=== PATIENT | female | born 1960 | race Caucasian/White ===

== ENCOUNTER 2023-12-09 18:40 | Emergency (ER) | payer OTHER, MEDICARE, SELFPAY ==
[2023-12-09] VITALS (10 sets, daily range): BP systolic 138–189; BP diastolic 72–90; PULSE 61–75; RESP 16; TEMP 36.8; O2SAT 97–99
--- NOTE | 2023-12-09 18:48 | ED_ITS ---
HPI - General Adult General Chief complaint: Fall Stated complaint: fell Time Seen by Provider: 12/09/23 18:48 History of Present Illness HPI narrative: 63-year-old female with history of B-cell lymphoma, ongoing chemotherapy through [facility] hematology oncology, via access right Port-A-Cath, had ground level fall last night at both show, apparently witnessed by some kind of medical provider that was worried the nature of her fall they she sustained significant injury, was advised to follow up, she did not decide to do so until now. No blood thinner medications taken. No loss of consciousness. Had headache initially. Has some posterior headache and neck pain residual. More problematic as a right elbow, with pain on movement. No other injuries. Denies chest pain, abdominal pain. No pain to the right clavicle, shoulder, upper arm, distal forearm, hand, wrist, fingers. No pain or injuries to the left upper extremity, nor to the lower extremities. Related Data Home Medications Medication Instructions Recorded Confirmed diphenoxylate-atropine 2.5 1 tab PO DAILY 08/18/23 12/09/23 mg-0.025 mg tablet dupilumab 300 mg/2 mL subcutaneous 300 mg SUBCUT Q2W 08/18/23 12/09/23 pen injector (Dupixent) immune glob,gamm(IgG) 5 %-malt-IgA IV 08/18/23 12/09/23 over 50 mcg/mL intravenous solution (Octagam) liothyronine 5 mcg tablet 5 mcg PO DAILY 08/18/23 12/09/23 lorazepam 1 mg tablet 1 mg PO DAILY PRN 08/18/23 12/09/23 pirtobrutinib 100 mg tablet 200 mg PO DAILY 08/18/23 12/09/23 (Jaypirca) Previous Rx's Medication Instructions Recorded citalopram 40 mg tablet 40 mg PO DAILY #90 tabs 08/18/23 Disabled Parking #1 ea 08/24/23 Disabled Parking 1 unit .Route ONCE #1 unit 08/24/23 Allergies Allergy/AdvReac Type Severity Reaction Status Date / Time No Known Drug Allergies Allergy Verified 12/09/23 18:09 Patient History Medical History Hypothyroid Dermatitis CLL (chronic lymphocytic leukemia) KARTHIKEYAN (generalized anxiety disorder) Surgical History History of tonsillectomy History of appendectomy History of cholecystectomy Social History marital status: number of children: 2 Smoking Status: Never smoker second hand exposure: Yes alcohol intake: current (Once a month if that) substance use type: does not use Smoking Status: Never smoker Exam Narrative Exam Narrative: GENERAL: Well-developed patient, in mild distress. HEAD: Atraumatic. Normocephalic. Wearing glasses, no obvious nasal bridge or periorbital injury patterns, the same glasses worn during the fall which do not appear to be damaged EYES: Pupils equal round and reactive. Extraocular motions intact. No scleral icterus. No injection or drainage. ENT: Nose without bleeding, purulent drainage. Throat without erythema, tonsillar hypertrophy or exudate. Airway patent. NECK: Trachea midline. Non tender CARDIOVASCULAR: Regular rate and rhythm without murmurs, gallops, or rubs. RESPIRATORY: Clear to auscultation. Breath sounds equal bilaterally. No wheezes, rales, or rhonchi. Right upper anterior chest Port-A-Cath, site does not appear injured from recent fall GASTROINTESTINAL: Abdomen soft, non-tender, nondistended. EXTREMITIES: No edema. Tenderness to right elbow area, without fluctuance or skin changes, can flex and extend but apparently this is quite uncomfortable. No tenderness to right clavicle, anterior shoulder, upper arm, forearm, wrist, hand, fingers. Left upper extremity and bilateral lower extremities atraumatic appearing BACK: Nontender without deformity or crepitance. No flank tenderness. NEURO: AOx3. SKIN: No rash or erythema of visible areas Initial Vital Signs Initial Vital Signs: Vital Signs Pulse Rate 66 12/09/23 18:49 Pulse Oximetry 99 12/09/23 18:49 Course Orders Ordered: ED Orders 12/09/23 18:57 CT cervical spine wo con Stat CT head/brain wo con Stat 12/09/23 18:58 XR elbow RT min 3V Stat Vital Signs Vital signs: Vital Signs - 8 hr 12/09/23 18:54 Temperature 98.3 F Pulse Rate 75 Respiratory Rate 16 Blood Pressure 189/90 H Pulse Oximetry 97 Oxygen Delivery Method Room Air Medical Decision Making Differential Diagnosis Differential Diagnosis: Scalp contusion, traumatic brain injury, facial contusion, cervical strain Imaging Data Extremity x-ray #1: Radiologist's Impression: [address] [address] XRay Report Signed Patient: Rama Acosta MR#: [id number] : 1960 Acct:[id number] Age/Sex: 63 / F Date of Service: 12/09/23 Loc: ED Accession Number: [id number] Procedure: XR elbow RT min 3V Ordering Provider: Marco Tran MD PROCEDURE: XR ELBOW RT MIN 3V INDICATIONS: GLF, R elbow pain TECHNIQUE: 3 views of the elbow were acquired. COMPARISON: None. FINDINGS: Bones: No fractures or dislocations. No suspicious bony lesions. Soft tissues: No elbow joint effusion. No suspicious soft tissue calcifications. IMPRESSION: No acute bony abnormality or significant joint effusion. If symptoms persist with conservative management, consider cross-sectional imaging such as CT or MRI. Approved by: Monica Lozoya M.D.,Ph.D. on 12/09/2023 at 20:38 CT scan - head: Radiologist's Impression: [address] [address] [address] Scan Report Signed Patient: Rama Acosta MR#: [id number] : 1960 Acct:[id number] Age/Sex: 63 / F Date of Service: 12/09/23 Loc: ED Accession Number: [id number] Procedure: CT head/brain wo con Ordering Provider: Marco Tran MD PROCEDURE: CT HEAD/BRAIN WO CON INDICATIONS: head injury TECHNIQUE: Noncontrast 4.5 mm thick angled axial sections acquired from the foramen magnum to the vertex, with coronal and sagittal reformats. For radiation dose reduction, the following was used: automated exposure control, adjustment of mA and/or kV according to patient size. COMPARISON: None. FINDINGS: Image quality: Diagnostic. CSF spaces: Basal cisterns are patent. No extra-axial fluid collections. Ventricles are normal in size and shape. Brain: No midline shift. No intracranial masses or hemorrhage. [place]-white matter interface is normal. Skull and face: Calvarium and visualized facial bones are intact, without suspicious lesions. Sinuses: Visualized sinuses and mastoids are clear. IMPRESSION: No acute intracranial pathology. Approved by: Monica Lozoya M.D.,Ph.D. on 12/09/2023 at 20:40 CT - cervical spine: Radiologist's Impression: [address] [address] [address] Scan Report Signed Patient: Rama Acosta MR#: [id number] : 1960 Acct:[id number] Age/Sex: 63 / F Date of Service: 12/09/23 Loc: ED Accession Number: [id number] Procedure: CT cervical spine wo con Ordering Provider: Marco Tran MD PROCEDURE: CT CERVICAL SPINE WO CON INDICATIONS: neck pain after GLF TECHNIQUE: Noncontrast 3 mm thick sections acquired from the skull base to the T4 level. Sagittal and coronal reformats were then constructed. For radiation dose reduction, the following was used: automated exposure control, adjustment of mA and/or kV according to patient size. COMPARISON: None. FINDINGS: Image quality: Diagnostic. Bones: No fractures or dislocations. Visualized superior ribs are intact. Soft tissues: Prevertebral soft tissues are normal in thickness. No paravertebral hematomas. No apical pneumothoraces. IMPRESSION: No displaced fracture or traumatic subluxation. Approved by: Monica Lozoya M.D.,Ph.D. on 12/09/2023 at 20:43 MDM Narrative Medical decision making narrative: Ground level fall last night, apparently witnessed by medical provider who is quite concerned about the nature of her fall and was worried about significant injury to face/head. She was wearing glasses, had no breakage of the glasses, no nasal bleeding, had some posterior headache, also posterior neck pain. Complains more of right elbow pain. She does not take any blood thinner medicat ions. CT head, CT cervical spine, right elbow x-rays ordered. Additional Information: CT head study negative, CT cervical spine study negative, x-ray right elbow series also negative. Right sling applied. Take [id number] Motrin as needed. Follow up recheck symptoms with your regular provider in the next 2-3 days if not improved. Return precautions discussed. Discharge Plan Departure Patient Disposition: Home Clinical Impression: Contusion of elbow, Neck strain Activity Restrictions/Additional Instructions: Reported, we will fall yesterday with right elbow pain persisting. X-ray negative for fracture, placed in sling for comfort and support. Also some posterior neck discomfort, apparently the fall was so worrisome to a medical provider on scene that they recommended close follow-up and imaging. CT head study negative. CT cervical spine study negative. Take Tylenol and or Motrin as needed for discomfort. Follow up with your regular provider in next 2-3 days. Return to this/nearest emergency department for any change worsening symptoms or any concerns prior Prescriptions: No Action Dupixent Pen 300 mg/2 mL pen injector 300 mg SUBCUT Q2W liothyronine 5 mcg tablet 5 mcg PO DAILY Patient Comments: 7 tabs per day Jaypirca 100 mg tablet 200 mg PO DAILY diphenoxylate-atropine 2.5-0.025 mg tablet 1 tab PO DAILY lorazepam 1 mg tablet 1 mg PO DAILY PRN Octagam 5 % solution IV citalopram 40 mg tablet 40 mg PO DAILY Qty: 90 2RF (DME) Disabled Parking See Rx Instructions .ROUTE .[facility] Qty: 1 0RF Rx Instructions: I find this patient to be medically disabled and qualified for DISABLED PARKING as indicated, and signed, on the ACCOMPANYING DISABLED PARKING APPLICATION for Individuals. Disabled Parking 1 unit .Route ONCE Qty: 1 0RF Rx Instructions: I find this patient to medically disabled and qualified for disabled parking as indicated and signed on the accompanying disabled parking applications for individuals. Referrals: Brenda Dias MD [Primary Care Provider] - Stand Alone Forms: Patient Portal/API
--- NOTE | 2023-12-09 18:57 | DI.CT.S_ITS ---
PROCEDURE: CT HEAD/BRAIN WO CON INDICATIONS: head injury TECHNIQUE: Noncontrast 4.5 mm thick angled axial sections acquired from the foramen magnum to the vertex, with coronal and sagittal reformats. For radiation dose reduction, the following was used: automated exposure control, adjustment of mA and/or kV according to patient size. COMPARISON: None. FINDINGS: Image quality: Diagnostic. CSF spaces: Basal cisterns are patent. No extra-axial fluid collections. Ventricles are normal in size and shape. Brain: No midline shift. No intracranial masses or hemorrhage. [place]-white matter interface is normal. Skull and face: Calvarium and visualized facial bones are intact, without suspicious lesions. Sinuses: Visualized sinuses and mastoids are clear. IMPRESSION: No acute intracranial pathology. Approved by: Monica Lozoya M.D.,Ph.D. on 12/09/2023 at 20:40
--- NOTE | 2023-12-09 18:57 | DI.CT.S_ITS ---
PROCEDURE: CT CERVICAL SPINE WO CON INDICATIONS: neck pain after GLF TECHNIQUE: Noncontrast 3 mm thick sections acquired from the skull base to the T4 level. Sagittal and coronal reformats were then constructed. For radiation dose reduction, the following was used: automated exposure control, adjustment of mA and/or kV according to patient size. COMPARISON: None. FINDINGS: Image quality: Diagnostic. Bones: No fractures or dislocations. Visualized superior ribs are intact. Soft tissues: Prevertebral soft tissues are normal in thickness. No paravertebral hematomas. No apical pneumothoraces. IMPRESSION: No displaced fracture or traumatic subluxation. Approved by: Monica Lozoya M.D.,Ph.D. on 12/09/2023 at 20:43
--- NOTE | 2023-12-09 18:58 | DI.RAD.S_ITS ---
PROCEDURE: XR ELBOW RT MIN 3V INDICATIONS: GLF, R elbow pain TECHNIQUE: 3 views of the elbow were acquired. COMPARISON: None. FINDINGS: Bones: No fractures or dislocations. No suspicious bony lesions. Soft tissues: No elbow joint effusion. No suspicious soft tissue calcifications. IMPRESSION: No acute bony abnormality or significant joint effusion. If symptoms persist with conservative management, consider cross-sectional imaging such as CT or MRI. Approved by: Monica Lozoya M.D.,Ph.D. on 12/09/2023 at 20:38
== END 2023-12-09 21:33 | disposition home or self-care (01) ==
PROVIDERS: Emergency Provider Emergency Medicine; PCP Family Medicine
DX: S50.01XA Contusion of right elbow, initial encounter (principal); S16.1XXA Strain of muscle, fascia and tendon at neck level, initial encounter; S09.90XA Unspecified injury of head, initial encounter; W18.30XA Fall on same level, unspecified, initial encounter; C91.10 Chronic lymphocytic leukemia of B-cell type not having achieved remission
CPT/HCPCS: 70450; 72125; 73080; 99283; 99284

== ENCOUNTER → 2024-04-17 16:40 | Outpatient (CLI) | payer OTHER, MEDICARE, SELFPAY ==
--- NOTE | 2024-04-17 16:44 | DI.RAD.S_ITS ---
PROCEDURE: XR CHEST 2V INDICATIONS: Cough TECHNIQUE: 2 views of the chest were acquired. COMPARISON: None. FINDINGS: Surgical changes and devices: Right chest wall Port-A-Cath tip is in SVC. Lungs and pleura: Lungs are clear. No pleural effusions or pneumothorax. Mediastinum: Mediastinal contours are normal. Heart size is normal. Bones and chest wall: No suspicious bony abnormalities. Soft tissues appear unremarkable. IMPRESSION: No acute cardiopulmonary pathology. Dictated by: Dakota Briggs M.D. on 04/19/2024 at 11:05 Approved by: Dakota Briggs M.D. on 04/19/2024 at 11:07
== END ==
PROVIDERS: PCP Family Medicine; Referring Provider Family Medicine; Visit Provider Family Medicine
DX: J18.9 Pneumonia, unspecified organism (principal); R05.9 Cough, unspecified
CPT/HCPCS: 71046

== ENCOUNTER 2024-06-29 09:11 | Outpatient (CLI) | payer OTHER, MEDICARE, SELFPAY ==
[2024-06-29] VITALS (14 sets, daily range): BP systolic 104–146; BP diastolic 62–78; PULSE 20–70; RESP 16–22; TEMP 36.6; O2SAT 93–98
--- NOTE | 2024-06-29 09:15 | DI.CT.S_ITS ---
PROCEDURE: CT CHEST WO CON INDICATIONS: Right lower lobe posterior/medial basilar segment pulmonary nodules, the most characteristic of which was targeted for CT-guided biopsy attempt under moderate sedation. TECHNIQUE: Noncontrast 5 mm thick sections acquired from the pulmonary apices to the posterior costophrenic angles. 1 mm lung window, 5 mm thick coronal and sagittal and 7 mm axial MIP reformats were then acquired. For radiation dose reduction, the following was used: automated exposure control, adjustment of mA and/or kV according to patient size. COMPARISON: None. FINDINGS: Image quality: Procedural. A time-out was performed and the patient was provided moderate sedation in anticipation for the procedure. A topogram was obtained followed by selective noncontrast CT imaging through the lung bases with the patient in the right lateral decubitus position in an attempt to approach the right lower lobe pulmonary nodule of choice from a medial to lateral posterior approach. Grid lines were used to select a target window. Local anesthesia was given at the window entry site. An additional scan was performed. The preprocedural planned window was obscured by an overlying rib upon needle check in this position. Adjustments were made to depth of respiration or expiration in the right lateral decubitus position without providing an adequate window. The patient was slightly rolled more prone with additional attempts also adjusting respiration. Inconsistent respiratory hold led to significant variation and the nodules position in relation to the pre selected entry sites making it impossible to target the lesion successfully under still frame CT. Fluoroscopic CT is not available. Therefore, the CT-guided right lower lobe pulmonary nodule biopsy was aborted at this time related to targeting issues and concern for wide respiratory motion resulting in a large pleural tear during an attempted biopsy. IMPRESSION: Aborted right lower lobe pulmonary nodule biopsy attempt related to wide variation and respiratory motion under moderate sedation. For better targeting and patient safety the decision was made to reschedule this procedure with general anesthesia in order to adequately target the lesion under breath hold with reduced risk of pleural tearing and increased likelihood of obtaining an adequate sample. Dictated by: Berry Paige M.D. on 06/29/2024 at 13:57 Approved by: Berry Paige M.D. on 06/29/2024 at 14:05
[2024-06-29 09:44] LABS: Hemoglobin 14.1 g/dL (12.0-16.0); Mean Corpuscular HGB Conc 33.6 % (30-36); Mean Corpuscular Hemoglobin 31.6 PG (26-34); Mean Corpuscular Volume 94.2 fL (80-100); Platelet Count 305 X10^3/uL (150-400); Red Blood Cell Count 4.46 X10^6/uL (4.0-5.2); Red Cell Distribution Width 13.6 % (11.6-14.8); White Blood Cell Count 6.5 X10^3/uL (4.5-11.0)
[2024-06-29 10:06] LABS: Prothrombin Time 11.5 SECONDS (9.4-12.5)
[2024-06-29] MEDS: LIDOCAINE 1% 20 ML INJ (10:35)
[2024-06-29] MEDS: fentaNYL 100 MCG/2 ML INJ IV (13:00)
[2024-06-29] MEDS: MIDAZOLAM 2 MG/2 ML VIAL IV (13:00)
== END 2024-06-29 12:00 | disposition home or self-care (01) ==
PROVIDERS: PCP Family Medicine; Referring Provider Radiology Diagnostic Radiology; Visit Provider Radiology Diagnostic Radiology
DX: C91.10 Chronic lymphocytic leukemia of B-cell type not having achieved remission (principal); R91.8 Other nonspecific abnormal finding of lung field
CPT/HCPCS: 71250; 85027; 85610; J2250; J3010

== ENCOUNTER 2024-07-09 19:21 | Emergency (ER) | payer OTHER, SELFPAY ==
[2024-07-09 19:30] VITALS: BP 147/78; PULSE 95; RESP 18; TEMP 36.7; O2SAT 96; BMI 40.3
== END 2024-07-09 20:31 | disposition left against medical advice (07) ==
PROVIDERS: Emergency Provider Emergency Medicine; PCP Family Medicine
DX: K92.0 Hematemesis (principal)
CPT/HCPCS: 99281

== ENCOUNTER 2024-07-13 07:06 | Outpatient (CLI) | payer OTHER, SELFPAY ==
[2024-07-13] VITALS (23 sets, daily range): BP systolic 100–134; BP diastolic 50–83; PULSE 54–71; RESP 10–25; TEMP 36.4; O2SAT 69–99
--- NOTE | 2024-07-13 | PATH_ITS ---
[facility] Accession Number: [id number] No. of containers..01 Tissue . 01 Material submitted: . lung - RIGHT LUNG . 01 Clinical history: . RIGHT LOWER LOBE LUNG NODULE PARAESOPHAGEAL NODULE . 01 Diagnosis: RIGHT LUNG, CORE BIOPSY: Peripheral lung tissue with rare intra-alveolar histiocytes, non-specific. No neoplasia or malignancy identified. MRV 07/16/2024 1550 Local . 01 Electronically signed: . Sobeida Purvis MD, Pathologist NPI- [id number] . 01 Gross description: . RIGHT LUNG: Received in formalin are 3 fragment(s) of cruz, soft tissue measuring 0.1 x 0.1 x 0.1 cm to 0.3 x 0.1 x 0.1 cm submitted entirely in 1 cassette(s) /FELIBERTO 07/13/2024 2348 Local . 01 Pathologist provided ICD-10: R91.1 . 01 CPT . 714733 Specimen Comment: A courtesy copy of this report has been sent to [phone] Specimen Comment: Health Pathology Performed at: [address] [address], [place], [place] [id number] MD Berry Redding MD Phone: [phone]
--- NOTE | 2024-07-13 | DI.RAD.S_ITS ---
PROCEDURE: XR CHEST 1V INDICATIONS: POST LUNG BIOPSY TECHNIQUE: One view of the chest was acquired. COMPARISON: None. FINDINGS: Surgical changes and devices: Right-sided chest port catheter with tip at the cavoatrial junction is unchanged in position.. Lungs and pleura: Lungs are clear. No pleural effusions or pneumothorax. Mediastinum: Mediastinal contours appear normal. Heart size is normal. Bones and chest wall: No suspicious bony lesions. Overlying soft tissues appear unremarkable. IMPRESSION: No right-sided pneumothorax post lung biopsy. Dictated by: Reji Tanner M.D. on 07/13/2024 at 12:44 Approved by: Reji Tanner M.D. on 07/13/2024 at 12:44
--- NOTE | 2024-07-13 07:08 | DI.CT.S_ITS ---
CLINICAL HISTORY: 64-year-old woman with enlarging right lower lobe lung nodules. PROCEDURE: CT GUIDED RIGHT LOWER LOBE LUNG NODULE BIOPSY PHYSICIAN: Reji Tanner M.D. SEDATION: Conscious sedation was performed by the nursing staff under the supervision of the physician with continuous hemodynamic monitoring. Medications: Versed 2 mg; Fentanyl 100 mcg; sedation time 30 min DOSE: DLP: 3102 mGycm CONTRAST: none FINDINGS: After the risks, benefits and alternatives were explained, informed consent was obtained from the patient and/or family members. The patient was placed prone on the CT table. An appropriate skin entry site was prepped and draped in a sterile fashion. Local anesthesia administered with 1% lidocaine. Under CT guidance, a 19 gauge needle cannula was advanced in stepwise fashion into the medial right lower lobe lung nodule which was reported to demonstrate interval growth on a prior chest CT of 05/31/2024 and adjacent to the esophagus. CT was performed confirming needle position within the targeted lesion. Next, a coaxial 20 gauge core biopsy needle was advanced through the needle cannula and 4 core biopsies were obtained. Specimens were sent to pathology for evaluation. Additional specimens sent for culture. The needle was removed. Patient tolerated the procedure well. No immediate complications noted. IMPRESSION: CT guided biopsy of right lower lobe paraesophageal lung nodule as described. Dictated by: Reji Tanner M.D. on 07/13/2024 at 16:28 Approved by: Reji Tanner M.D. on 07/13/2024 at 16:32
[2024-07-13] MEDS: MIDAZOLAM 2 MG/2 ML VIAL 1 MG IV ×2 (08:56→09:06)
[2024-07-13] MEDS: LIDOCAINE 1% 20 ML INJ (09:00)
[2024-07-13] MEDS: fentaNYL 100 MCG/2 ML INJ 50 MCG IV ×2 (09:06→11:03)
== END 2024-07-13 12:00 | disposition home or self-care (01) ==
PROVIDERS: PCP Family Medicine; Referring Provider Internal Medicine Critical Care Medicine; Visit Provider Internal Medicine Critical Care Medicine
DX: R91.8 Other nonspecific abnormal finding of lung field (principal)
CPT/HCPCS: 32408; 71045; 87070; 87116; 87205; 87206; 99152; 99153; J2250; J3010

== ENCOUNTER → 2024-08-30 10:09 | Outpatient (CLI) | payer OTHER, MEDICARE, SELFPAY ==
--- NOTE | 2024-08-30 10:13 | DI.CT.S_ITS ---
PROCEDURE: CT CHEST WO CON INDICATIONS: chest pain TECHNIQUE: Noncontrast 5 mm thick sections acquired from the pulmonary apices to the posterior costophrenic angles. 1 mm lung window, 5 mm thick coronal and sagittal and 7 mm axial MIP reformats were then acquired. For radiation dose reduction, the following was used: automated exposure control, adjustment of mA and/or kV according to patient size. COMPARISON: [facility], CT, CT CHEST WO CON, 06/29/2024, 10:21., CT CHEST 05/30/2024 FINDINGS: Image quality: Diagnostic. Lower Neck: No enlarged lymph nodes. Thyroid: No thyroid nodules which require sonographic follow up, per consensus guidelines. Axillae: No enlarged lymph nodes. Chest Wall: There is a right chest wall catheter with tip terminating in the lower SVC. Bones: No aggressive osseous abnormality. Mild multilevel degenerative changes of the visualized spine. Lungs and Pleura: No pneumothorax or pleural effusions. There is redemonstration of multiple right lower lobe solid nodules as well as right upper lobe nodule, which are overall not significantly changed in size since prior CT 05/30/2024. There are post biopsy changes of the medial right lower lobe nodule status post CT-guided biopsy with trace adjacent subpleural fluid. Heart: Heart size is normal. No pericardial effusion. Thoracic Vessels: The aorta and pulmonary arteries demonstrate normal size. Mediastinum and Myrna: No enlarged lymph nodes. Esophagus: No wall thickening. Small hiatal hernia hiatal hernia. Upper Abdomen: Pneumobilia, as before. Visualized upper abdomen solid organs and bowel loops appear normal. IMPRESSION: Compared to prior CT 05/30/2024, status post CT-guided biopsy of medial right lower lobe lung nodule with post biopsy changes. Remainder of right upper and lower lobe nodules are not significantly changed. No new findings. Stable mild pneumobilia. Approved by: Monica Lozoya M.D.,Ph.D. on 08/30/2024 at 11:04
== END ==
LOC: CT 10:12
PROVIDERS: PCP Family Medicine; Referring Provider Internal Medicine Critical Care Medicine; Visit Provider Internal Medicine Critical Care Medicine
DX: R91.8 Other nonspecific abnormal finding of lung field (principal); R05.9 Cough, unspecified; K83.8 Other specified diseases of biliary tract
CPT/HCPCS: 71250

== ENCOUNTER 2024-10-02 11:21 | Emergency (ER) | payer MEDICARE, SELFPAY ==
[2024-10-02 11:24] VITALS: BP 128/70; PULSE 67; RESP 18; TEMP 35.8; O2SAT 99; BMI 40.3
--- NOTE | 2024-10-02 11:38 | ED.GENADULT ---
HPI - General Adult General Chief complaint: Shortness of Breath/Dyspnea Stated complaint: severe Lung pain, Time Seen by Provider: 10/02/24 11:33 History of Present Illness HPI narrative: 64-year-old woman with a history of CLL, depression, hypothyroidism, presents complaining of right posterior chest pain with significant pleuritic component. She has been seen by her plant engineering manager for this as recently as September 06. Patient underwent lung biopsy of a right paraesophageal nodule July [id number] which showed rare intra alveolar histiocytes with no neoplastic findings. She began experiencing right posterior chest pain at time. Had a follow up CT of the chest on August 30, 2024 which showed no significant changes to any of her findings. No recurrent hemoptysis. Related Data Home Medications Medication Instructions Recorded Confirmed diphenoxylate-atropine 2.5 1 tab PO DAILY 08/18/23 09/06/24 mg-0.025 mg tablet immune glob,gamm(IgG) 5 %-malt-IgA IV 08/18/23 09/06/24 over 50 mcg/mL intravenous solution (Octagam) lorazepam 1 mg tablet 1 mg PO DAILY PRN 08/18/23 09/06/24 pirtobrutinib 100 mg tablet 200 mg PO DAILY 08/18/23 09/06/24 (Jaypirca) albuterol sulfate 90 mcg/actuation 1 inh inhalation ONCE 03/19/24 09/06/24 aerosol inhaler Previous Rx's Medication Instructions Recorded Disabled Parking #1 ea 08/24/23 Disabled Parking 1 unit .Route ONCE #1 unit 08/24/23 bupropion HCl 150 mg 24 hr tablet, See Rx Instructions .Route 02/27/24 extended release .COMPLEX #30 tabs sodium,potassium,mag sulfates 17.5 See Rx Instructions PO .COMPLEX 03/07/24 gram-3.13 gram-1.6 gram oral soln #354 mL (Suprep Bowel Prep Kit) fluticasone propionate 50 1 spray intranasal DAILY #16 grams 04/17/24 mcg/actuation nasal spray,suspension (Flonase Allergy Relief) liothyronine 5 mcg tablet 35 mcg (7 x 5 mcg) PO DAILY #630 06/04/24 tabs citalopram 40 mg tablet 40 mg PO DAILY #90 tabs 08/20/24 dexamethasone 4 mg tablet 10 mg (2.5 x 4 mg) PO DAILY #5 tabs 10/02/24 gabapentin 100 mg capsule 100 mg PO BEDTIME #30 caps 10/02/24 oxycodone-acetaminophen 5 mg-325 1 tab PO Q6H PRN pain #10 tabs 10/02/24 mg tablet Allergies Allergy/AdvReac Type Severity Reaction Status Date / Time No Known Drug Allergies Allergy Verified 08/30/24 11:23 Patient History Medical History Hypothyroid Dermatitis CLL (chronic lymphocytic leukemia) KARTHIKEYAN (generalized anxiety disorder) Surgical History History of tonsillectomy History of appendectomy History of cholecystectomy Social History marital status: number of children: 2 Smoking Status: Never smoker second hand exposure: Yes alcohol intake: current substance use type: does not use Smoking Status: Never smoker alcohol intake frequency: 0-2 drinks per day Exam Initial Vital Signs Initial Vital Signs: Vital Signs Temperature 96.4 F L 10/02/24 11:24 Pulse Rate 67 10/02/24 11:24 Respiratory Rate 18 10/02/24 11:24 Blood Pressure 128/70 10/02/24 11:24 Pulse Oximetry 99 10/02/24 11:24 Oxygen Delivery Method Room Air 10/02/24 11:24 General: Appears to be in pain, able to speak in full sentences, no respiratory distress HEENT: Moist mucous membranes, normal sclera with reactive pupils, Respiratory: Lungs are clear to auscultation, no wheezing no rales no rhonchi. Full and symmetrical air movement Chest: Tender anterior mid clavicular line for ribs 2 3 and 4 to direct palpation with no overlying redness or subcutaneous air. Significant tenderness posterior axillary line ribs 10 11 and 12 on the right side, again with no over lying skin abnormalities Cardiac: Regular rate and rhythm no murmurs no bruits Abdomen: Soft, nontender, good bowel tones, no flank pain Skin: Warm and dry, no rashes Neurologic: Grossly neurologically intact with no obvious asymmetries or abnormalities Extremities: No trauma, well perfused Psych: Cooperative, appropriate insight and affect Course Orders Ordered: ED Orders 10/02/24 11:59 CT chest w con Stat 10/02/24 12:20 Complete Blood Count AUTO DIFF Stat Comprehensive Metabolic Panel Stat Hydromorphone HCl (Hydromorphone 0.5 Mg Inj) 0.5 mg IV Q15MIN PRN PRN Reason: Pain, Last Admin: 10/02/24 13:19 Dose: 0.5 mg Documented By: Discontinued Medications Dexamethasone (Dexamethasone 10 Mg/Ml Vial) 10 mg IV NOW ONE Stop: 10/02/24 13:03 Last Admin: 10/02/24 13:18 Dose: 10 mg Documented By: Ondansetron HCl (Ondansetron 4 Mg/2 Ml Inj) 4 mg IV NOW ONE Stop: 10/02/24 12:36 Last Admin: 10/02/24 12:38 Dose: 4 mg Documented By: Vital Signs Vital signs: Vital Signs - 8 hr 10/02/24 11:24 10/02/24 13:29 Temperature 96.4 F L Pulse Rate 67 65 Respiratory Rate 18 16 Blood Pressure 128/70 131/84 Pulse Oximetry 99 98 Oxygen Delivery Method Room Air Room Air Medical Decision Making Lab Data 10/02/24 12:20 10/02/24 12:20 Labs: Lab Results 10/02/24 Range/Units 12:20 WBC 11.0 (4.5-11.0) X10^3/uL RBC 4.30 (4.0-5.2) X10^6/uL Hgb 13.6 (12.0-16.0) g/dL Hct 40.5 (36-46) % MCV 94.2 (80-100) fL MCH 31.6 (26-34) PG MCHC 33.5 (30-36) % RDW 13.3 (11.6-14.8) % Plt Count 295 (150-400) X10^3/uL Neut % (Auto) 74.9 (50-75) % Lymph % (Auto) 13.9 L (25-40) % [place] % (Auto) 7.7 (3-14) % Eos % (Auto) 2.9 (2-4) % Baso % (Auto) 0.6 (0-2) % Neut # (Auto) 8200 H (6999-0021) /uL Lymph # (Auto) 1500 (2618-2312) /uL [place] # (Auto) 800 (0-900) /uL Eos # (Auto) 300 (0-450) /uL Baso # (Auto) 100 (0-100) /uL Sodium 140 (137-145) mmol/L Potassium 3.9 (3.4-5.1) mmol/L Chloride 104 (98-107) mmol/L Carbon Dioxide 27 (22-32) mmol/L BUN 13 (7-17) mg/dL Creatinine 0.90 (0.52-1.04) mg/dL Estimated GFR > 60 (>60) mL/min BUN/Creatinine Ratio 14.4 (6-22) Glucose 100 (80-110) mg/dL Calcium 9.3 (8.4-10.2) mg/dL Total Bilirubin 0.5 (0.2-1.3) mg/dL AST 25 (14-36) IU/L ALT 18 (<35) IU/L Alkaline Phosphatase 83 (38-126) U/L Total Protein 7.5 (6.3-8.2) g/dL Albumin 4.1 (3.5-5.0) g/dL Globulin 3.4 (1.7-4.1) g/dL Albumin/Globulin Ratio 1.2 (1.0-2.8) MDM Narrative Medical decision making narrative: CC: Severe right-sided chest pain Complicating co-morbidities: Pain has been present since June after a lung nodule biopsy. Has a history of C LL, this pain has been evaluated as an outpatient by her pulmonary provider as well as her primary care provider Data collected from: patient Medical records reviewed: Pulmonary notes from September 06 with notes of rib pain are reviewed Family practice notes with similar complaints also reviewed Differential considered: Pleurisy, metastatic erosion into bones, primary bone metastases Exam documented above, pertinent findings include: Patient is exquisitely tender completely reproducible anterior upper ribs on the right, posterior pain for lower ribs on the right with underlying pulmonary exam benign Lab Test results independently reviewed as above. Pertinent findings: CBC is reassuring Metabolic panel shows no acute findings Imaging studies independently reviewed: Chest CT scan done on August 30 is reviewed Given the severity of her point tenderness and concern for metastatic disease or new eroding lesions, decision was made, in discussion with the patient, to repeat CT scan of the chest Treatments: IV dexamethasone, Zofran discussion: 64-year-old woman with a history of CLL, chronic pulmonary nodules, recent biopsy of a pulmonary nodule with pain musculoskeletal and pleuritic on the right side extensive evaluation with multiple CT scans at this point. No obvious explanation for the pain has been identified. Specifically no acute bony abnormalities, no metastatic explanation for pain, the pain goes along the entire right thorax so simple radicular pain would not explain this. Labs are reassuring, CT scan is again reassuring. We talked about using 3 days of dexamethasone to reduce inflammation, suggested a brief trial of low-dose gabapentin to see if we could add neuro modulator for this pain control that is causing her so much suffering. We talked about adding narcotics. We negotiated a written prescription for a small dose of narcotic that she can choose to fill in the future if the pain continues. Did ask her to follow up with her primary care physician Discharge Plan Departure Patient Disposition: Home Clinical Impression: Acute chest wall pain Instructions: DI for Pleurisy Activity Restrictions/Additional Instructions: Thank you for coming in today, I am sorry that you are continuing to suffer with the severe right-sided rib pain I have not been able to find an obvious acute medical abnormality that I can change or fix to get rid of your pain. Specifically, there were no rib fractures, there is no cancer in your ribs, there was no cancer from your lungs that is spreading to your ribs, no obvious infection. Because this affects your entire right side of the torso this is not from a single nerve root from your neck that might be causing the problem I am going to suggest 3 days of dexamethasone, this is an anti-inflammatory to reduce inflammation. First dose was given in the emergency department you need 2-1/2 pills tomorrow and 2-1/2 pills the following day I am also going to suggest a neuromodulator type pain medication, gabapentin. This helps change how your brain interprets pain signals so that the pain signals are not so all encompassing. Going to suggest starting at a small dose, 100 mg at night. I have given you enough for a month, if you do not notice any benefit after a week do not continue. Do discuss this with your regular physician We discussed narcotics. While I respect very much your desire to avoid them, times there is a place for narcotic and acute pain control. I have given you a prescription for oxycodone that is written. If you do want to fill this prescription to help with pain control note that it is a narcotic, there is a potential for addiction and it will cause constipation. It will also help with your pain. Using 400 mg of ibuprofen (2 [id number] pills) and 1 Tylenol every 6 hours can be very helpful in controlling pain. If you find that you are getting worse or develop any new symptoms, please feel free to return to the emergency department for further evaluation. Prescriptions: New dexamethasone 4 mg tablet 10 mg PO DAILY Qty: 5 0RF gabapentin 100 mg capsule 100 mg PO BEDTIME Qty: 30 0RF oxycodone-acetaminophen 5-325 mg tablet 1 tab PO Q6H PRN (Reason: pain) Qty: 10 0RF No Action Jaypirca 100 mg tablet 200 mg PO DAILY diphenoxylate-atropine 2.5-0.025 mg tablet 1 tab PO DAILY lorazepam 1 mg tablet 1 mg PO DAILY PRN Octagam 5 % solution IV albuterol sulfate 90 mcg/actuation HFA aerosol inhaler 1 inh inhalation ONCE fluticasone propionate [Flonase Allergy Relief] 50 mcg/actuation spray,suspension 1 spray intranasal DAILY Qty: 16 0RF Rx Instructions: administer into each nostril (DME) Disabled Parking See Rx Instructions .ROUTE .MEDSUPPLY Qty: 1 0RF Rx Instructions: I find this patient to be medically disabled and qualified for DISABLED PARKING as indicated, and signed, on the ACCOMPANYING DISABLED PARKING APPLICATION for Individuals. Disabled Parking 1 unit .Route ONCE Qty: 1 0RF Rx Instructions: I find this patient to medically disabled and qualified for disabled parking as indicated and signed on the accompanying disabled parking applications for individuals. bupropion HCl 150 mg tablet extended release 24 hr See Rx Instructions .ROUTE .COMPLEX Qty: 30 5RF Dose Instruction: TAKE ONE TABLET BY MOUTH EVERY MORNING Rx Instructions: TAKE ONE TABLET BY MOUTH EVERY MORNING sodium,potassium,mag sulfates [Suprep Bowel Prep Kit] 17.5-3.13-1.6 gram recon soln See Rx Instructions PO .COMPLEX Qty: 354 0RF Rx Instructions: take as directed by Physician liothyronine 5 mcg tablet 35 mcg PO DAILY Qty: 630 3RF citalopram 40 mg tablet 40 mg PO DAILY Qty: 90 3RF Referrals: Brenda Dias MD [Primary Care Provider] - Stand Alone Forms: Patient Portal/API/Survey
--- NOTE | 2024-10-02 11:59 | DI.CT.S_ITS ---
PROCEDURE: CT CHEST W CON INDICATIONS: Right rib pain, CLL TECHNIQUE: After the administration of intravenous contrast, 5 mm thick sections acquired from the pulmonary apices to the posterior costophrenic angles. 1 mm axial lung, 5 mm thick coronal and sagittal reformats and 7 mm axial MIP were acquired. For radiation dose reduction, the following was used: automated exposure control, adjustment of mA and/or kV according to patient size. COMPARISON: [facility], CT, CT CHEST WO [facility], 08/30/2024, 10:18. FINDINGS: Image quality: Diagnostic. Lower Neck: No enlarged lymph nodes. Thyroid: No thyroid nodules which require sonographic follow up, per consensus guidelines. Axillae: No enlarged lymph nodes. Chest Wall: Right chest wall Port-A-Cath tip is in SVC.. Bones: No aggressive appearing bony lesions. No displaced rib fracture is seen. Lungs and Pleura: Small right pleural effusion. Compressive atelectasis in posterior aspect of right lower lobe is seen. Calcified granuloma is again seen at posterior aspect of right lung base. Calcified granuloma in anterior medial aspect of left lingular segment is also seen. No pneumothorax. Scattered atelectasis are seen in posterior and lateral periphery of bilateral lower lung gross. No suspicious pulmonary nodules. Heart: Heart size is normal. No pericardial effusion. Thoracic Vessels: The aorta and pulmonary arteries demonstrate normal size. Mediastinum and Myrna: No enlarged lymph nodes. Esophagus: No wall thickening. No hiatal hernia. Upper Abdomen: Visualized upper abdomen solid organs and bowel loops appear normal. Normal bili and visualized right and left hepatic lobe is seen. Gallbladder is surgically absent. IMPRESSION: 1. No displaced rib lesions. No suspicious aggressive appearing bony lesions. 2. Small right pleural effusion new since previous study. Scattered atelectasis in posterior and lateral periphery of bilateral lower lung gross. Calcified granuloma at bilateral lung bases as above. No pneumothorax. 3. No mediastinal or hilar lymphadenopathy . 4. Chronic appearing pneumobilia. Dictated by: Dakota Briggs M.D. on 10/02/2024 at 13:24 Approved by: Dakota Briggs M.D. on 10/02/2024 at 13:29
[2024-10-02] MEDS: ONDANSETRON 4 MG/2 ML INJ IV (12:38)
[2024-10-02 13:17] LABS: Add Manual Diff / Slide Review NO; Basophils Absolute Auto 100 /uL (0-100); Basophils Percent Auto 0.6 % (0-2); Eosinophils Absolute Auto 300 /uL (0-450); Eosinophils Percent Auto 2.9 % (2-4); Hematocrit 40.5 % (36-46); Hemoglobin 13.6 g/dL (12.0-16.0); Lymphocytes Absolute Auto 1500 /uL (1100-4500); Lymphocytes Percent Auto 13.9 % (25-40); Mean Corpuscular HGB Conc 33.5 % (30-36); Mean Corpuscular Hemoglobin 31.6 PG (26-34); Mean Corpuscular Volume 94.2 fL (80-100); Monocytes Absolute Auto 800 /uL (0-900); Monocytes Percent Auto 7.7 % (3-14); Neutrophils Absolute Auto 8200 /uL (1500-7000); Neutrophils Percent Auto 74.9 % (50-75); Platelet Count 295 X10^3/uL (150-400); Red Cell Distribution Width 13.3 % (11.6-14.8)
[2024-10-02] MEDS: DEXAMETHASONE 10 MG/ML VIAL IV (13:18)
[2024-10-02] MEDS: HYDROMORPHONE 0.5 MG INJ IV (13:19)
[2024-10-02 13:25] LABS: Alanine Aminotransferase 18 IU/L (<35); Albumin 4.1 g/dL (3.5-5.0); Albumin Globulin Ratio 1.2 (1.0-2.8); Alkaline Phosphatase 83 U/L (38-126); Aspartate Aminotransferase 25 IU/L (14-36); BUN Creatinine Ratio 14.4 (6-22); Bilirubin Total 0.5 mg/dL (0.2-1.3); Blood Urea Nitrogen 13 mg/dL (7-17); Calcium 9.3 mg/dL (8.4-10.2); Carbon Dioxide 27 mmol/L (22-32); Chloride 104 mmol/L (98-107); Estimated Glomerular Filt Rate > 60 mL/min (>60); Globulin 3.4 g/dL (1.7-4.1); Glucose 100 mg/dL (80-110); HEMOLYSIS < 15 (0-50); Potassium 3.9 mmol/L (3.4-5.1); Sodium 140 mmol/L (137-145); Total Protein 7.5 g/dL (6.3-8.2)
[2024-10-02 13:29] VITALS: BP 131/84; PULSE 65; RESP 16; O2SAT 98
[2024-10-02 14:00] VITALS: BP 132/76; PULSE 69; O2SAT 94
[2024-10-02 14:30] VITALS: BP 138/80; PULSE 67; O2SAT 96
== END 2024-10-02 15:16 | disposition home or self-care (01) ==
PROVIDERS: Emergency Provider Emergency Medicine; PCP Family Medicine
DX: R07.89 Other chest pain (principal); C91.10 Chronic lymphocytic leukemia of B-cell type not having achieved remission; Z98.890 Other specified postprocedural states
CPT/HCPCS: 71260; 80053; 85025; 96374; 96375; 99283; 99284; J1100; J1171; J2405; Q9967

== ENCOUNTER 2024-10-07 14:11 | Emergency (ER) | payer MEDICARE, SELFPAY ==
[2024-10-07] VITALS (16 sets, daily range): BP systolic 109–156; BP diastolic 58–94; PULSE 65–100; RESP 16–18; TEMP 37.1; O2SAT 92–98; BMI 40.5
--- NOTE | 2024-10-07 14:52 | ED.GENADULT ---
HPI - General Adult <Elida Post MD - Last Filed: 10/17/24 07:52> General Chief complaint: Fever Stated complaint: sent by Oncology for infection work up Time Seen by Provider: 10/07/24 14:44 Source: patient Mode of arrival: Ambulatory History of Present Illness HPI narrative: 64-year-old woman with a history of CLL, followed by Dr Enriquez at [facility] in [place]. Reported fevers for over a week, with fatigue diarrhea and nausea and vomiting. Discussed with her oncologist and suggested that she come to the emergency department for an infectious disease workup. Last Tylenol dose yesterday. Last chemotherapy was September 28. Last IV IG infusion was on the and was 60 g. In June she changed oncology providers and her q. 3 weeks 60 g of IV IG had been inadvertently decreased to 35 g. She identifies this timeframe as the onset of the majority of her symptoms started. Patient was seen in this ER on October 02 with complaints of right posterior chest pain with pleuritic component. Workup at that time did not suggest infectious etiology. CT scan of the chest was done. Patient states that she is still having severe pain in the right posterior lower lung field with deeper questioning also notes she is having chronic nausea, watery then makes her nauseated. She is having headaches if she does not drink enough water. Continues to describe low-grade fevers, she has been having softer stools but no overt diarrhea. No dysuria or flank pain. No altered mental status, nuchal rigidity or headaches to suggest meningitis. Related Data Home Medications Medication Instructions Recorded Confirmed diphenoxylate-atropine 2.5 1 tab PO DAILY 08/18/23 09/06/24 mg-0.025 mg tablet immune glob,gamm(IgG) 5 %-malt-IgA IV 08/18/23 09/06/24 over 50 mcg/mL intravenous solution (Octagam) lorazepam 1 mg tablet 1 mg PO DAILY PRN 08/18/23 09/06/24 pirtobrutinib 100 mg tablet 200 mg PO DAILY 08/18/23 09/06/24 (Jaypirca) albuterol sulfate 90 mcg/actuation 1 inh inhalation ONCE 03/19/24 09/06/24 aerosol inhaler entecavir 0.5 mg tablet 0.5 mg PO DAILY 10/09/24 10/09/24 estradiol 0.01% (0.1 mg/gram) vaginal 10/09/24 10/09/24 vaginal cream Previous Rx's Medication Instructions Recorded Disabled Parking #1 ea 08/24/23 Disabled Parking 1 unit .Route ONCE #1 unit 08/24/23 bupropion HCl 150 mg 24 hr tablet, See Rx Instructions .Route 02/27/24 extended release .COMPLEX #30 tabs sodium,potassium,mag sulfates 17.5 See Rx Instructions PO .COMPLEX 03/07/24 gram-3.13 gram-1.6 gram oral soln #354 mL (Suprep Bowel Prep Kit) fluticasone propionate 50 1 spray intranasal DAILY #16 grams 04/17/24 mcg/actuation nasal spray,suspension (Flonase Allergy Relief) liothyronine 5 mcg tablet 35 mcg (7 x 5 mcg) PO DAILY #630 06/04/24 tabs citalopram 40 mg tablet 40 mg PO DAILY #90 tabs 08/20/24 gabapentin 100 mg capsule 100 mg PO BEDTIME #30 caps 10/02/24 fluconazole 150 mg tablet 150 mg PO ONCE #1 tab 10/11/24 Allergies Allergy/AdvReac Type Severity Reaction Status Date / Time No Known Drug Allergies Allergy Verified 10/09/24 14:23 Review of Systems <Elida Post MD - Last Filed: 10/17/24 07:52> Review of Systems Narrative: Pertinent positive and negative findings as per HPI Patient History <Elida Post MD - Last Filed: 10/17/24 07:52> Medical History Hypothyroid Dermatitis CLL (chronic lymphocytic leukemia) KARTHIKEYAN (generalized anxiety disorder) Surgical History History of tonsillectomy History of appendectomy History of cholecystectomy Social History marital status: number of children: 2 Smoking Status: Never smoker second hand exposure: Yes alcohol intake: current substance use type: does not use Smoking Status: Never smoker alcohol intake frequency: 0-2 drinks per day Exam <Elida Post MD - Last Filed: 10/17/24 07:52> Initial Vital Signs Initial Vital Signs: Vital Signs Temperature 98.8 F 10/07/24 14:14 Pulse Rate 85 10/07/24 14:14 Respiratory Rate 18 10/07/24 14:14 Blood Pressure 156/94 H 10/07/24 14:14 Pulse Oximetry 96 10/07/24 14:14 Oxygen Delivery Method Room Air 10/07/24 14:14 General: Fatigued appearing, in no acute distress. Able to give a complete and coherent history. Well-nourished well-developed HEENT: Moist mucous membranes, normal sclera with reactive pupils, Neck: No cervical adenopathy Respiratory: Lungs are clear to auscultation, no wheezing no rales no rhonchi. Full and symmetrical air movement Chest: Reproducible tenderness over the right lateral ribs 11 and 12 Cardiac: Regular rate and rhythm no murmurs no bruits Abdomen: Soft, mild tenderness along the upper abdomen, epigastrium, no rebound or guarding, no flank pain Skin: Warm and dry, no rashes Neurologic: Grossly neurologically intact with no obvious asymmetries or abnormalities Extremities: No trauma, well perfused Psych: Cooperative, appropriate insight and affect <Desire Craig DO - Last Filed: 10/07/24 20:38> Initial Vital Signs Initial Vital Signs: Vital Signs Temperature 98.8 F 10/07/24 14:14 Pulse Rate 85 10/07/24 14:14 Respiratory Rate 18 10/07/24 14:14 Blood Pressure 156/94 H 10/07/24 14:14 Pulse Oximetry 96 10/07/24 14:14 Oxygen Delivery Method Room Air 10/07/24 14:14 Course <Elida Post MD - Last Filed: 10/17/24 07:52> Orders Ordered: Discontinued Medications Hydrocodone Bitart/Acetaminophen (Hydrocodone/Acet 5/325 Prepack) 1 bottle MISC DIRECTED ONE Stop: 10/07/24 19:42 Last Admin: 10/07/24 19:49 Dose: 1 bottle Documented By: SARAH Cephalexin HCl (Cephalexin 250 Mg Capsule) 500 mg PO NOW ONE Stop: 10/07/24 19:42 Last Admin: 10/07/24 19:49 Dose: 500 mg Documented By: SARAH Sodium Chloride (Normal Saline 0.9%) 1,000 mls @ 1,000 mls/hr IV BOLUS ONE Stop: 10/07/24 16:06 Last Infusion: 10/07/24 16:32 Dose: Infused Documented By: Admin: 10/07/24 15:19 Dose: 1,000 mls/hr Documented By: DESTINI Ondansetron HCl (Ondansetron 4 Mg/2 Ml Inj) 4 mg IV NOW ONE Stop: 10/07/24 15:08 Last Admin: 10/07/24 15:20 Dose: 4 mg Documented By: DESTINI Vital Signs Vital signs: Vital Signs - 8 hr 10/07/24 14:14 10/07/24 14:20 10/07/24 14:30 Temperature 98.8 F Pulse Rate 85 79 Respiratory Rate 18 Blood Pressure 156/94 H 123/70 Pulse Oximetry 96 97 Oxygen Delivery Method Room Air 10/07/24 14:30 10/07/24 15:00 10/07/24 15:00 Temperature Pulse Rate 71 66 Respiratory Rate Blood Pressure 154/89 H Pulse Oximetry 94 98 Oxygen Delivery Method 10/07/24 15:30 10/07/24 15:30 10/07/24 16:00 Temperature Pulse Rate 69 Respiratory Rate Blood Pressure 128/68 129/69 Pulse Oximetry 96 Oxygen Delivery Method 10/07/24 16:00 10/07/24 16:30 10/07/24 17:00 Temperature 98.7 F Pulse Rate 65 72 71 Respiratory Rate Blood Pressure Pulse Oximetry 96 96 96 Oxygen Delivery Method Room Air 10/07/24 17:21 10/07/24 17:21 10/07/24 17:30 Temperature Pulse Rate 72 Respiratory Rate Blood Pressure 121/65 113/58 L Pulse Oximetry 96 Oxygen Delivery Method Room Air 10/07/24 17:30 10/07/24 18:09 10/07/24 18:10 Temperature Pulse Rate 71 100 H Respiratory Rate Blood Pressure 139/67 Pulse Oximetry 93 96 Oxygen Delivery Method 10/07/24 18:10 10/07/24 18:30 10/07/24 18:30 Temperature Pulse Rate 84 74 Respiratory Rate Blood Pressure 109/59 L Pulse Oximetry 95 94 Oxygen Delivery Method 10/07/24 19:00 10/07/24 19:00 10/07/24 19:28 Temperature 98.7 F Pulse Rate 76 Respiratory Rate Blood Pressure 113/62 Pulse Oximetry 92 Oxygen Delivery Method 10/07/24 19:57 Temperature Pulse Rate 72 Respiratory Rate 16 Blood Pressure 115/59 L Pulse Oximetry 96 Oxygen Delivery Method <Desire Craig, - Last Filed: 10/07/24 20:38> Orders Ordered: Discontinued Medications Hydrocodone Bitart/Acetaminophen (Hydrocodone/Acet 5/325 Prepack) 1 bottle MISC DIRECTED ONE Stop: 10/07/24 19:42 Last Admin: 10/07/24 19:49 Dose: 1 bottle Documented By: SARAH Cephalexin HCl (Cephalexin 250 Mg Capsule) 500 mg PO NOW ONE Stop: 10/07/24 19:42 Last Admin: 10/07/24 19:49 Dose: 500 mg Documented By: SARAH Sodium Chloride (Normal Saline 0.9%) 1,000 mls @ 1,000 mls/hr IV BOLUS ONE Stop: 10/07/24 16:06 Last Infusion: 10/07/24 16:32 Dose: Infused Documented By: Admin: 10/07/24 15:19 Dose: 1,000 mls/hr Documented By: DESTINI Ondansetron HCl (Ondansetron 4 Mg/2 Ml Inj) 4 mg IV NOW ONE Stop: 10/07/24 15:08 Last Admin: 10/07/24 15:20 Dose: 4 mg Documented By: DESTINI Vital Signs Vital signs: Vital Signs - 8 hr 10/07/24 14:14 10/07/24 14:20 10/07/24 14:30 Temperature 98.8 F Pulse Rate 85 79 Respiratory Rate 18 Blood Pressure 156/94 H 123/70 Pulse Oximetry 96 97 Oxygen Delivery Method Room Air 10/07/24 14:30 10/07/24 15:00 10/07/24 15:00 Temperature Pulse Rate 71 66 Respiratory Rate Blood Pressure 154/89 H Pulse Oximetry 94 98 Oxygen Delivery Method 10/07/24 15:30 10/07/24 15:30 10/07/24 16:00 Temperature Pulse Rate 69 Respiratory Rate Blood Pressure 128/68 129/69 Pulse Oximetry 96 Oxygen Delivery Method 10/07/24 16:00 10/07/24 16:30 10/07/24 17:00 Temperature 98.7 F Pulse Rate 65 72 71 Respiratory Rate Blood Pressure Pulse Oximetry 96 96 96 Oxygen Delivery Method Room Air 10/07/24 17:21 10/07/24 17:21 10/07/24 17:30 Temperature Pulse Rate 72 Respiratory Rate Blood Pressure 121/65 113/58 L Pulse Oximetry 96 Oxygen Delivery Method Room Air 10/07/24 17:30 10/07/24 18:09 10/07/24 18:10 Temperature Pulse Rate 71 100 H Respiratory Rate Blood Pressure 139/67 Pulse Oximetry 93 96 Oxygen Delivery Method 10/07/24 18:10 10/07/24 18:30 10/07/24 18:30 Temperature Pulse Rate 84 74 Respiratory Rate Blood Pressure 109/59 L Pulse Oximetry 95 94 Oxygen Delivery Method 10/07/24 19:00 10/07/24 19:00 10/07/24 19:28 Temperature 98.7 F Pulse Rate 76 Respiratory Rate Blood Pressure 113/62 Pulse Oximetry 92 Oxygen Delivery Method 10/07/24 19:57 Temperature Pulse Rate 72 Respiratory Rate 16 Blood Pressure 115/59 L Pulse Oximetry 96 Oxygen Delivery Method Medical Decision Making <Elida Post MD - Last Filed: 10/17/24 07:52> Lab Data 10/07/24 15:20 10/07/24 15:20 Labs: Lab Results 10/07/24 10/07/24 Range/Units 15:20 16:20 WBC 12.7 H (4.5-11.0) X10^3/uL RBC 4.36 (4.0-5.2) X10^6/uL Hgb 13.6 (12.0-16.0) g/dL Hct 41.0 (36-46) % MCV 93.9 (80-100) fL MCH 31.2 (26-34) PG MCHC 33.2 (30-36) % RDW 13.2 (11.6-14.8) % Plt Count 291 (150-400) X10^3/uL Neut % (Auto) 77.0 H (50-75) % Lymph % (Auto) 13.2 L (25-40) % [place] % (Auto) 7.9 (3-14) % Eos % (Auto) 0.8 L (2-4) % Baso % (Auto) 1.1 (0-2) % Neut # (Auto) 9800 H (0870-6146) /uL Lymph # (Auto) 1700 (9195-4687) /uL [place] # (Auto) 1000 H (0-900) /uL Eos # (Auto) 100 (0-450) /uL Baso # (Auto) 100 (0-100) /uL Sodium 138 (137-145) mmol/L Potassium 4.0 (3.4-5.1) mmol/L Chloride 105 (98-107) mmol/L Carbon Dioxide 28 (22-32) mmol/L BUN 17 (7-17) mg/dL Creatinine 0.97 (0.52-1.04) mg/dL Estimated GFR > 60 (>60) mL/min BUN/Creatinine Ratio 17.5 (6-22) Glucose 93 (80-110) mg/dL Lactate 0.7 (0.7-2.1) mmol/L Calcium 8.9 (8.4-10.2) mg/dL Total Bilirubin 0.6 (0.2-1.3) mg/dL AST 24 (14-36) IU/L ALT 18 (<35) IU/L Alkaline Phosphatase 80 (38-126) U/L Total Protein 7.7 (6.3-8.2) g/dL Albumin 3.8 (3.5-5.0) g/dL Globulin 3.9 (1.7-4.1) g/dL Albumin/Globulin Ratio 1.0 (1.0-2.8) Lipase 112 (23-300) U/L Procalcitonin 0.056 (<0.5) ng/mL Urine Color Yellow Urine Appearance Clear Urine pH 6.0 (4.5-8.0) Ur Specific [place] 1.010 (1.000-1.035) Urine Protein Negative (Negative) Urine Glucose (UA) Negative (Negative) g/dL Urine Ketones Negative (NEGATIVE) Urine Occult Blood Negative (Negative) Urine Nitrate Negative (Negative) Urine Bilirubin Negative (NEGATIVE) Urine Urobilinogen 0.2 (0.2) E.U./dL Ur Leukocyte Esterase Trace H (NEGATIVE) Urine RBC None seen (0-5/HPF) Urine WBC 0-1/hpf (0-5/HPF) Ur Squamous Epith Cells None seen (0-5/HPF) Urine Bacteria Few (2-10) H (None) Ur Culture Indicated? Specimen cultured Vol Urine Centrifuged 10ml (spun) Imaging Data X ray: Radiologist's Impression: PROCEDURE: XR CHEST 1V INDICATIONS: fever unknown origin, on chemo for CLL TECHNIQUE: One view of the chest was acquired. COMPARISON: [facility], CR, XR CHEST 1V, 07/13/2024, 11:31. FINDINGS: Surgical changes and devices: Right chest wall Port-A-Cath tip is in SVC. Lungs and pleura: Ill-defined increased opacity in right infrahilar region is seen. No pleural effusions or pneumothorax. Mediastinum: Mediastinal contours appear normal. Heart size is normal. Bones and chest wall: No suspicious bony lesions. Overlying soft tissues appear unremarkable. IMPRESSION: Finding is concerning for small developing right lower lobe infiltrate versus atelectasis. No pleural effusion or pneumothorax. Dictated by: Dakota Briggs M.D. on 10/07/2024 at 15:36 MDM Narrative Medical decision making narrative: CC: Persistent fevers Complicating co-morbidities: Currently being treated with chemotherapy for CLL, IVIG q. 3 weeks followed at [facility] and [place]. Persistent right-sided posterior rib right upper quadrant pain. Data collected from: patient Medical records reviewed: My note from the for similar findings reviewed, CT scan and lab work from the are reviewed Differential considered: Fever related to chemotherapy or IVIG therapy, bacteremia uncertain etiology, as this has been going on since June viral etiology is far less likely. Physical exam does not offer significant localizing symptoms beyond the pain in the right posterior ribs with CT scan of that area unremarkable 5 days ago. Exam documented above, pertinent findings include: Patient was fatigued, mild tenderness in the upper epigastrium, point tenderness over the right lateral 12th rib, she does not have an acute surgical abdomen or localizing findings, no skin changes abscesses or other source of infection identified Lab Test results independently reviewed as above. Pertinent findings: CBC shows slight leukocytosis at 12.7 with 77% neutrophils Chemistries are entirely reassuring Lactic acid is not elevated, 0.7 Lipase is not elevated Imaging studies independently reviewed: CT scanner is currently unavailable. As we scanned her chest I believe abdominal scanning which will include the base of the right lung we will be the next move. Will use MR with and without contrast. Consultations: Treatments: Re-evaluations: Discussion: <Dseire Craig, DO - Last Filed: 10/07/24 20:38> Lab Data Labs: Lab Results 10/07/24 10/07/24 Range/Units 15:20 16:20 WBC 12.7 H (4.5-11.0) X10^3/uL RBC 4.36 (4.0-5.2) X10^6/uL Hgb 13.6 (12.0-16.0) g/dL Hct 41.0 (36-46) % MCV 93.9 (80-100) fL MCH 31.2 (26-34) PG MCHC 33.2 (30-36) % RDW 13.2 (11.6-14.8) % Plt Count 291 (150-400) X10^3/uL Neut % (Auto) 77.0 H (50-75) % Lymph % (Auto) 13.2 L (25-40) % [place] % (Auto) 7.9 (3-14) % Eos % (Auto) 0.8 L (2-4) % Baso % (Auto) 1.1 (0-2) % Neut # (Auto) 9800 H (3643-1799) /uL Lymph # (Auto) 1700 (5391-3120) /uL [place] # (Auto) 1000 H (0-900) /uL Eos # (Auto) 100 (0-450) /uL Baso # (Auto) 100 (0-100) /uL Sodium 138 (137-145) mmol/L Potassium 4.0 (3.4-5.1) mmol/L Chloride 105 (98-107) mmol/L Carbon Dioxide 28 (22-32) mmol/L BUN 17 (7-17) mg/dL Creatinine 0.97 (0.52-1.04) mg/dL Estimated GFR > 60 (>60) mL/min BUN/Creatinine Ratio 17.5 (6-22) Glucose 93 (80-110) mg/dL Lactate 0.7 (0.7-2.1) mmol/L Calcium 8.9 (8.4-10.2) mg/dL Total Bilirubin 0.6 (0.2-1.3) mg/dL AST 24 (14-36) IU/L ALT 18 (<35) IU/L Alkaline Phosphatase 80 (38-126) U/L Total Protein 7.7 (6.3-8.2) g/dL Albumin 3.8 (3.5-5.0) g/dL Globulin 3.9 (1.7-4.1) g/dL Albumin/Globulin Ratio 1.0 (1.0-2.8) Lipase 112 (23-300) U/L Procalcitonin 0.056 (<0.5) ng/mL Urine Color Yellow Urine Appearance Clear Urine pH 6.0 (4.5-8.0) Ur Specific [place] 1.010 (1.000-1.035) Urine Protein Negative (Negative) Urine Glucose (UA) Negative (Negative) g/dL Urine Ketones Negative (NEGATIVE) Urine Occult Blood Negative (Negative) Urine Nitrate Negative (Negative) Urine Bilirubin Negative (NEGATIVE) Urine Urobilinogen 0.2 (0.2) E.U./dL Ur Leukocyte Esterase Trace H (NEGATIVE) Urine RBC None seen (0-5/HPF) Urine WBC 0-1/hpf (0-5/HPF) Ur Squamous Epith Cells None seen (0-5/HPF) Urine Bacteria Few (2-10) H (None) Ur Culture Indicated? Specimen cultured Vol Urine Centrifuged 10ml (spun) Imaging Data MR ab: Radiologist's Impression: PROCEDURE: MR ABDOMEN WO/W CON INDICATIONS: CLL on chemo, persistent fever unknown origin, pain RUQ TECHNIQUE: Coronal HASTE, axial 2D FLASH in- and [id number]; axial breath-hold T2 FSE. Dynamic axial VIBE during the administration of contrast; post-contrast coronal VIBE or 2D FLASH with fat saturation from the hepatic dome to the iliac crests. Optional diffusion weighted imaging and ADC may be performed. COMPARISON: [facility], CT, CT CHEST ABDOMEN PELVIS WITH CONTRAST, 05/30/2024, 13:44. [facility], CT, CT CHEST W CON, 10/02/2024, 12:13. FINDINGS: Image quality: Diagnostic. Lung bases: Small right pleural effusion is again seen unchanged from prior study. Liver: No enhancing hepatic lesion. Gallbladder: No gallstones or wall thickening. Previous CT finding of small amount of air within non dependent portion of gallbladder lumen is not appreciated on the current study. No pericholecystic fluid. Biliary ducts: No biliary dilation. Patient's known pneumobilia in left and right hepatic lobes extending to common bile duct is again seen and unchanged. No choledocholithiasis. Pancreas: No ductal dilation. Spleen: Size is within normal limits. Adrenal Glands: No adrenal nodules. Kidneys and Ureters: No hydronephrosis. No solid mass. No complex renal cystic lesion which requires follow up. Stomach and Bowel: Normal colonic caliber, without significant wall thickening. Peritoneum: No abnormal intraperitoneal fluid. Ventral Wall: No hernia. Abdominal Nodes: No retroperitoneal or mesenteric adenopathy by size criteria. Vessels: Aorta and inferior vena cava are normal in size. Bones: No aggressive osseous abnormality. IMPRESSION: 1. Pneumobilia and small amount of air within gallbladder lumen better evaluated on previous CT chest studies. Gallbladder is partially distended. No gallstones or gallbladder wall thickening. No pericholecystic fluid. 2. No biliary ductal dilatation. 3. No enhancing hepatic lesion. Normal appearing spleen, pancreas, bilateral adrenal glands and bilateral kidneys. 4. No bowel obstruction or abnormal bowel wall thickening. No peritoneal free fluid or free air. Dictated by: Dakota Briggs M.D. on 10/07/2024 at 18:27 MDM Narrative Medical decision making narrative: CC: Persistent fevers Complicating co-morbidities: Currently being treated with chemotherapy for CLL, IVIG q. 3 weeks followed at [facility] and [place]. Persistent right-sided posterior rib right upper quadrant pain. Data collected from: patient Medical records reviewed: My note from the for similar findings reviewed, CT scan and lab work from the are reviewed Differential considered: Fever related to chemotherapy or IVIG therapy, bacteremia uncertain etiology, as this has been going on since June viral etiology is far less likely. Physical exam does not offer significant localizing symptoms beyond the pain in the right posterior ribs with CT scan of that area unremarkable 5 days ago. Exam documented above, pertinent findings include: Patient was fatigued, mild tenderness in the upper epigastrium, point tenderness over the right lateral 12th rib, she does not have an acute surgical abdomen or localizing findings, no skin changes abscesses or other source of infection identified Lab Test results independently reviewed as above. Pertinent findings: CBC shows slight leukocytosis at 12.7 with 77% neutrophils Chemistries are entirely reassuring Lactic acid is not elevated, 0.7 Lipase is not elevated Imaging studies independently reviewed: CT scanner is currently unavailable. As we scanned her chest I believe abdominal scanning which will include the base of the right lung we will be the next move. Will use MR with and without contrast. Consultations: Treatments: Re-evaluations: Discussion: Patient signed out to me by Dr. Post. Patient has a history of CLL undergoing IVIG treatment followed at [facility]. Has had ongoing right back pain. She has had numerous studies including numerous chest CTs today she has had an abdominal MRI no cause of her pain. Today she had temperature nausea vomiting and an episode of diarrhea. She does have mild leukocytosis of 12 urinalysis does show some bacteria but no leukocytes or nitrates. Patient does have some discomfort with urination. No evidence of severe sepsis. She is tolerating fluids at this time. Discussed pain management with her. Discharge Plan Departure Patient Disposition: Home Clinical Impression: UTI (urinary tract infection) Qualifiers: Urinary tract infection type: acute cystitis Hematuria presence: without hematuria Qualified Code(s): N30.00 - Acute cystitis without hematuria Instructions: DI for Urinary Tract Infection (UTI) Activity Restrictions/Additional Instructions: *You have been diagnosed with UTI *What to do: At this time increase fluids as tolerated, recommend electrolyte fluids *Continue to take medications as directed Basco 1 tablet every 6 hours or at time for severe pain Keflex 500 mg twice a day for 5 days *Follow up with your primary care provider in 2-3 days or call [phone] *Return to ER if you should have increasing nausea vomiting not tolerating any fluids or any new, worsening or concerning symptoms CONTROLLED SUBSTANCE DISCHARGE (Narcotoic/benzodiazepine/Flexeril/Phenergan) 1. You have been prescribed narcotic medications, it does have acetaminophen/Tylenol/paracetamol in it, DO NOT TAKE MORE THAN 4,00mg in 24 hours of Tylenol. TRAMADOL DOES NOT CONTAIN TYLENOL 2. Please understand that we cannot provide further refills of narcotics, benzodiazepines or controlled substances through the ED and her pain management will need to be through your provider. 3. While on these medications you cannot drive or operate heavy machinery. 4. You cannot sign legal documents or perform any duties such as this. 5. As long as you're taking opiate pain medications he should also be taking a stool softener such as Colace, Dulcolax, MiraLAX or prune juice, to help avoid constipation. Prescriptions: No Action Jaypirca 100 mg tablet 200 mg PO DAILY diphenoxylate-atropine 2.5-0.025 mg tablet 1 tab PO DAILY lorazepam 1 mg tablet 1 mg PO DAILY PRN Octagam 5 % solution IV albuterol sulfate 90 mcg/actuation HFA aerosol inhaler 1 inh inhalation ONCE estradiol 0.01 % (0.1 mg/gram) cream vaginal entecavir 0.5 mg tablet 0.5 mg PO DAILY fluticasone propionate [Flonase Allergy Relief] 50 mcg/actuation spray,suspension 1 spray intranasal DAILY Qty: 16 0RF Rx Instructions: administer into each nostril (DME) Disabled Parking See Rx Instructions .ROUTE .MEDSUPPLY Qty: 1 0RF Rx Instructions: I find this patient to be medically disabled and qualified for DISABLED PARKING as indicated, and signed, on the ACCOMPANYING DISABLED PARKING APPLICATION for Individuals. Disabled Parking 1 unit .Route ONCE Qty: 1 0RF Rx Instructions: I find this patient to medically disabled and qualified for disabled parking as indicated and signed on the accompanying disabled parking applications for individuals. bupropion HCl 150 mg tablet extended release 24 hr See Rx Instructions .ROUTE .COMPLEX Qty: 30 5RF Dose Instruction: TAKE ONE TABLET BY MOUTH EVERY MORNING Rx Instructions: TAKE ONE TABLET BY MOUTH EVERY MORNING sodium,potassium,mag sulfates [Suprep Bowel Prep Kit] 17.5-3.13-1.6 gram recon soln See Rx Instructions PO .COMPLEX Qty: 354 0RF Rx Instructions: take as directed by Physician liothyronine 5 mcg tablet 35 mcg PO DAILY Qty: 630 3RF citalopram 40 mg tablet 40 mg PO DAILY Qty: 90 3RF fluconazole 150 mg tablet 150 mg PO ONCE Qty: 1 0RF Rx Instructions: as a single dose gabapentin 100 mg capsule 100 mg PO BEDTIME Qty: 30 0RF Referrals: Brenda Dias MD [Primary Care Provider] - Stand Alone Forms: Patient Portal/API/Survey
--- NOTE | 2024-10-07 15:05 | DI.MRI.S_ITS ---
PROCEDURE: MR ABDOMEN WO/W CON INDICATIONS: CLL on chemo, persistent fever unknown origin, pain RUQ TECHNIQUE: Coronal HASTE, axial 2D FLASH in- and utc-ci-knais; axial breath-hold T2 FSE. Dynamic axial VIBE during the administration of contrast; post-contrast coronal VIBE or 2D FLASH with fat saturation from the hepatic dome to the iliac crests. Optional diffusion weighted imaging and ADC may be performed. COMPARISON: [facility], CT, CT CHEST ABDOMEN PELVIS WITH CONTRAST, 05/30/2024, 13:44. [facility], CT, CT CHEST W CON, 10/02/2024, 12:13. FINDINGS: Image quality: Diagnostic. Lung bases: Small right pleural effusion is again seen unchanged from prior study. Liver: No enhancing hepatic lesion. Gallbladder: No gallstones or wall thickening. Previous CT finding of small amount of air within non dependent portion of gallbladder lumen is not appreciated on the current study. No pericholecystic fluid. Biliary ducts: No biliary dilation. Patient's known pneumobilia in left and right hepatic lobes extending to common bile duct is again seen and unchanged. No choledocholithiasis. Pancreas: No ductal dilation. Spleen: Size is within normal limits. Adrenal Glands: No adrenal nodules. Kidneys and Ureters: No hydronephrosis. No solid mass. No complex renal cystic lesion which requires follow up. Stomach and Bowel: Normal colonic caliber, without significant wall thickening. Peritoneum: No abnormal intraperitoneal fluid. Ventral Wall: No hernia. Abdominal Nodes: No retroperitoneal or mesenteric adenopathy by size criteria. Vessels: Aorta and inferior vena cava are normal in size. Bones: No aggressive osseous abnormality. IMPRESSION: 1. Pneumobilia and small amount of air within gallbladder lumen better evaluated on previous CT chest studies. Gallbladder is partially distended. No gallstones or gallbladder wall thickening. No pericholecystic fluid. 2. No biliary ductal dilatation. 3. No enhancing hepatic lesion. Normal appearing spleen, pancreas, bilateral adrenal glands and bilateral kidneys. 4. No bowel obstruction or abnormal bowel wall thickening. No peritoneal free fluid or free air. Dictated by: Dakota Briggs M.D. on 10/07/2024 at 18:27 Approved by: Dakota Briggs M.D. on 10/07/2024 at 18:33
--- NOTE | 2024-10-07 15:08 | DI.RAD.S_ITS ---
PROCEDURE: XR CHEST 1V INDICATIONS: fever unknown origin, on chemo for CLL TECHNIQUE: One view of the chest was acquired. COMPARISON: [facility], CR, XR CHEST 1V, 07/13/2024, 11:31. FINDINGS: Surgical changes and devices: Right chest wall Port-A-Cath tip is in SVC. Lungs and pleura: Ill-defined increased opacity in right infrahilar region is seen. No pleural effusions or pneumothorax. Mediastinum: Mediastinal contours appear normal. Heart size is normal. Bones and chest wall: No suspicious bony lesions. Overlying soft tissues appear unremarkable. IMPRESSION: Finding is concerning for small developing right lower lobe infiltrate versus atelectasis. No pleural effusion or pneumothorax. Dictated by: Dakota Briggs M.D. on 10/07/2024 at 15:36 Approved by: Dakota Briggs M.D. on 10/07/2024 at 15:37
[2024-10-07] MEDS: SODIUM CHLORIDE 0.9% 1,000 ML 1000 ML IV (15:19)
[2024-10-07] MEDS: ONDANSETRON 4 MG/2 ML INJ IV (15:20)
--- NOTE | 2024-10-07 15:25 | PC.NURSE ---
Pt reports 2/10 headache. Does not want any pain meds at this time.
[2024-10-07 15:37] LABS: Add Manual Diff / Slide Review NO; Basophils Absolute Auto 100 /uL (0-100); Basophils Percent Auto 1.1 % (0-2); Eosinophils Absolute Auto 100 /uL (0-450); Eosinophils Percent Auto 0.8 % (2-4); Hemoglobin 13.6 g/dL (12.0-16.0); Lymphocytes Absolute Auto 1700 /uL (1100-4500); Lymphocytes Percent Auto 13.2 % (25-40); Mean Corpuscular HGB Conc 33.2 % (30-36); Mean Corpuscular Hemoglobin 31.2 PG (26-34); Mean Corpuscular Volume 93.9 fL (80-100); Monocytes Absolute Auto 1000 /uL (0-900); Monocytes Percent Auto 7.9 % (3-14); Neutrophils Absolute Auto 9800 /uL (1500-7000); Platelet Count 291 X10^3/uL (150-400); Red Blood Cell Count 4.36 X10^6/uL (4.0-5.2); Red Cell Distribution Width 13.2 % (11.6-14.8); White Blood Cell Count 12.7 X10^3/uL (4.5-11.0)
[2024-10-07 15:43] LABS: Alanine Aminotransferase 18 IU/L (<35); Albumin 3.8 g/dL (3.5-5.0); Alkaline Phosphatase 80 U/L (38-126); Aspartate Aminotransferase 24 IU/L (14-36); BUN Creatinine Ratio 17.5 (6-22); Bilirubin Total 0.6 mg/dL (0.2-1.3); Blood Urea Nitrogen 17 mg/dL (7-17); Calcium 8.9 mg/dL (8.4-10.2); Carbon Dioxide 28 mmol/L (22-32); Chloride 105 mmol/L (98-107); Estimated Glomerular Filt Rate > 60 mL/min (>60); Globulin 3.9 g/dL (1.7-4.1); Glucose 93 mg/dL (80-110); HEMOLYSIS < 15 (0-50); Lipase 112 U/L (23-300); Sodium 138 mmol/L (137-145); Total Protein 7.7 g/dL (6.3-8.2)
[2024-10-07 15:44] LABS: Lactate (Lactic Acid) 0.7 mmol/L (0.7-2.1)
[2024-10-07 16:00] LABS: Procalcitonin 0.056 ng/mL (<0.5)
[2024-10-07 16:29] LABS: Appearance Urine UA CLEAR; Bilirubin Urine UA NEGATIVE (NEGATIVE); Color Urine UA YELLOW; Glucose Urine UA NEGATIVE (Negative); Ketones Urine UA NEGATIVE (NEGATIVE); Leukocyte Esterase Urine UA TRACE (NEGATIVE); Nitrite Urine UA NEGATIVE (Negative); Occult Blood Urine UA NEGATIVE (Negative); Protein Urine UA NEGATIVE (Negative); Urobilinogen Urine UA 0.2 E.U./dL (0.2)
[2024-10-07 16:34] LABS: Bacteria Urine Few (2-10); Culture Indicated Urine Specimen Cultured; RBC Urine None Seen (0-5/HPF); Squamous Epithelial Cell Urine None Seen (0-5/HPF); Urine Volume 10mL (spun); WBC Urine 0-1/HPF (0-5/HPF)
--- NOTE | 2024-10-07 17:36 | PC.NURSE ---
Pt wheeled to MRI.
--- NOTE | 2024-10-07 19:31 | PC.NURSE ---
Fever now resolved. 98.7
[2024-10-07] MEDS: cephALEXin 250 MG CAPSULE 500 MG PO (19:49)
[2024-10-07] MEDS: HYDROCODONE/ACET 5/325 PREPACK 1 BOTTLE MISC (19:49)
== END 2024-10-07 20:01 | disposition home or self-care (01) ==
PROVIDERS: Emergency Medicine; Emergency Provider Emergency Medicine; PCP Family Medicine
DX: N39.0 Urinary tract infection, site not specified (principal); R07.89 Other chest pain; R10.11 Right upper quadrant pain; C91.10 Chronic lymphocytic leukemia of B-cell type not having achieved remission
CPT/HCPCS: 36415; 71045; 74183; 80053; 81001; 83605; 83690; 84145; 85025; 87040; 87086; 96361; 96374; 99284; A9579; J2405

== ENCOUNTER → 2024-10-09 15:31 | Outpatient (CLI) | payer MEDICARE, SELFPAY | PROVIDERS: PCP Family Medicine; Visit Provider Family Medicine | DX: N39.0 Urinary tract infection, site not specified (principal) | CPT/HCPCS: 87086 ==

== ENCOUNTER → 2024-11-23 16:43 | Outpatient (CLI) | payer MEDICARE, SELFPAY ==
--- NOTE | 2024-11-23 16:44 | DI.RAD.S_ITS ---
PROCEDURE: XR KNEE LT 3V INDICATIONS: Left knee pain TECHNIQUE: 3 views of the knee were acquired. COMPARISON: None. FINDINGS: Bones: No fractures or dislocations. Mild tricompartmental osteoarthritis is seen. No significant patellar subluxation. No suspicious bony lesions. Soft tissues: No joint effusion. No suspicious soft tissue calcifications. IMPRESSION: Mild tricompartmental osteoarthritis. No left knee fracture or dislocation. No significant joint effusion. Dictated by: Dakota Briggs M.D. on 11/23/2024 at 18:06 Approved by: Dakota Briggs M.D. on 11/23/2024 at 18:11
== END ==
PROVIDERS: PCP Family Medicine; Referring Provider Family Medicine; Visit Provider Family Medicine
DX: M17.12 Unilateral primary osteoarthritis, left knee (principal); M25.562 Pain in left knee
CPT/HCPCS: 73562

== ENCOUNTER → 2024-11-29 19:40 | Outpatient (CLI) | payer MEDICARE, SELFPAY ==
--- NOTE | 2024-11-29 19:46 | DI.MRI.S_ITS ---
PROCEDURE: MR KNEE LT WO CON INDICATIONS: L knee pain TECHNIQUE: Noncontrast sagittal PD fast spin echo and T2 fast spin echo with fat saturation, sagittal 3-D FLASH with fat saturation; coronal T1 spin echo and PD fast spin echo with fat saturation, and axial PD fast spin echo with fat saturation through the knee. COMPARISON: [facility], CR, XR KNEE LT 3V, 11/23/2024, 16:40. FINDINGS: Image quality: Excellent. Anterior cruciate ligament: Mild mucoid degeneration. Posterior cruciate ligament: Intact. Medial collateral ligament: Intact. Lateral collateral ligament: Remote prior sprain/partial tear of the proximal lateral collateral ligament. Medial meniscus: Mild intrasubstance degeneration without a discrete meniscal tear. Lateral meniscus: Shallow radial tearing at the body of the lateral meniscus with suspected inferiorly displaced flap component extending into the lateral tibial gutter. Medial and lateral tendons: The semimembranosus tendon insertions appear intact. Visualized portions of the pes anserinus tendons appear normal. The popliteus tendon is intact. Iliotibial band appears normal. Anterior structures: Mild patellar tendinosis. The distal quadriceps tendon is intact. 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 No edema in the infrapatellar fat pad. Bones: No bone marrow contusions or fractures. Medial femorotibial cartilage: Partial-thickness surface cartilage irregularity without a full-thickness defect. Lateral femorotibial cartilage: Mild partial-thickness cartilage irregularity. Patellofemoral cartilage: Mild partial-thickness cartilage irregularity most notably at the lateral patellar facet. Soft tissues: Moderate joint effusion. Small medial popliteal cyst. Prominent lobular posterior pericapsular ganglion cyst measuring up to 5.4 x 2.7 x 3.5 cm. Musculature is age-appropriate in bulk. IMPRESSION: 1. Complex tearing of the lateral meniscus with shallow radial component and inferiorly displaced flap component at the meniscal body. 2. Intrasubstance degeneration in the medial meniscus without a discrete tear. 3. Chronic grade 2 sprain/partial tear of the proximal lateral collateral ligament. 4. Mild mucoid degeneration of the anterior cruciate ligament. 5. Tricompartmental grade 2 chondromalacia. 6. Large posterior pericapsular ganglion cyst measuring up to 5.4 cm in length. 7. Moderate joint effusion. Small medial popliteal cyst. Approved by: Severo Banks M.D. on 11/30/2024 at 17:59
== END ==
LOC: MRI 19:43
PROVIDERS: PCP Family Medicine; Referring Provider Family Medicine; Visit Provider Family Medicine
DX: S83.272A Complex tear of lateral meniscus, current injury, left knee, initial encounter (principal); S83.422A Sprain of lateral collateral ligament of left knee, initial encounter; M94.262 Chondromalacia, left knee; M67.462 Ganglion, left knee; M25.462 Effusion, left knee; M71.22 Synovial cyst of popliteal space [Baker], left knee
CPT/HCPCS: 73721

== ENCOUNTER → 2025-06-14 11:56 | Outpatient (CLI) | payer MEDICARE, SELFPAY ==
--- NOTE | 2025-06-14 12:10 | DI.CT.S_ITS ---
PROCEDURE: CT CHEST ABD PEL W CON INDICATIONS: chronic lymphocytic leukemia TECHNIQUE: After the administration of intravenous contrast, 5 mm thick sections acquired from the lung apices to the symphysis. 5 mm coronal and sagittal reformats were performed, with additional 7 mm MIP reformats through the lungs. For radiation dose reduction, the following was used: automated exposure control, adjustment of mA and/or kV according to patient size. COMPARISON: [facility], MR, MR ABDOMEN WO/W CON, 10/07/2024, 17:29. [facility], CT, CT CHEST W CON, 10/02/2024, 12:13. [facility], CT, CT CHEST WO CON, 08/30/2024, 10:18. [facility], CT, CT CHEST ABDOMEN PELVIS WITH CONTRAST, 05/30/2024, 13:44. FINDINGS: Image quality: Excellent. CHEST: Lower Neck: No enlarged lymph nodes. Thyroid: No thyroid nodules which require sonographic follow up, per consensus guidelines. Axillae: No enlarged lymph nodes. Chest Wall: Right Port-A-Cath. Lungs and Pleura: No pneumothorax or pleural effusions. 6 mm right upper lobe nodule series 11, image 125. This measured approximately 5 mm on prior exam. Juxta fissural right nodule measuring 4 mm series 11, image 137, unchanged. Posterior right lower lobe nodule measuring 8 mm series 11, image 174 is unchanged. Right lower lobe calcified granuloma is stable. Heart: Heart size is normal. No pericardial effusion. Thoracic Vessels: The aorta and pulmonary arteries demonstrate normal size. Mediastinum and Myrna: No enlarged lymph nodes. Esophagus: No wall thickening. Moderate hiatal hernia. ABDOMEN: Liver: No solid mass. Gallbladder: Small focus of air is present in the gallbladder fossa. This could represent air within the gallbladder lumen or related overlapping bowel/pneumobilia given history of cholecystectomy. Biliary ducts: No biliary dilation. Pneumobilia is present. It is unchanged. Pancreas: No ductal dilation. Spleen: Size is within normal limits. Adrenal Glands: No adrenal nodules. Kidneys and Ureters: No hydronephrosis. No solid mass. No complex renal cystic lesion which requires follow up. Stomach and Bowel: Normal colonic caliber, without significant wall thickening. Appendix is not visualized. Peritoneum: No abnormal intraperitoneal fluid. No free air. Ventral Wall: No significant ventral hernia. Abdominal Nodes: No retroperitoneal or mesenteric adenopathy by size criteria. Vessels: Aorta and inferior vena cava are normal in size. PELVIS: Pelvic Organs: IUD is present. Bladder: No bladder wall thickening, accounting for underdistention. Pelvic Nodes: No enlarged lymph nodes. Miscellaneous: No inguinal hernias are seen. Posterior right gluteal lipoma Bones: No aggressive osseous abnormality. IMPRESSION: Pulmonary nodules as described above. Questionable 1 mm interval increase in size of right upper lobe nodule. This could be secondary to volume averaging. Interval attention to this region on follow-up is recommended. Dictated by: Mary Hou M.D. on 06/15/2025 at 16:09 Approved by: Mary Hou M.D. on 06/15/2025 at 16:22
--- NOTE | 2025-06-14 12:10 | DI.CT.S_ITS ---
PROCEDURE: CT SOFT TISSUE NECK W CON INDICATIONS: chronic lymphocytic leukemia TECHNIQUE: After the administration of intravenous contrast, 3.0 mm axial sections acquired from the sella to the aortic arch. Additional oblique axial 3.0 mm sections acquired through the pharynx. 3 mm thick coronal and sagittal reformats were generated. For radiation dose reduction, the following was used: automated exposure control. COMPARISON: [facility], CT, CT SOFT TISSUE NECK WITH CONTRAST, 05/30/2024, 13:44. FINDINGS: Image quality: Excellent. Lymph nodes: Scattered subcentimeter lymph nodes. While the majority are unchanged, several have decreased in size compared to prior exam. Vessels: Visualized vasculature appears patent. Neck spaces: The oropharynx, nasopharynx, and pharynx demonstrate no mucosal lesions. The vocal cords, false vocal cords, pyriform sinuses, epiglottis, vallecula, and tongue base all appear normal. Extramucosal spaces appear unremarkable. Glands: The parotid and submandibular glands appear normal. Thyroid gland is unremarkable. Miscellaneous: Visualized brain and orbits appear normal. Lung apices appear clear. Superficial soft tissues appear normal. Bones: No suspicious bony lesions. Visualized sinuses and mastoids appear unremarkable. IMPRESSION: Scattered subcentimeter lymph nodes stable versus less prominent when compared to prior exam. Dictated by: Mary Hou M.D. on 06/15/2025 at 16:22 Approved by: Mary Hou M.D. on 06/15/2025 at 16:24
== END ==
LOC: CT 12:02
PROVIDERS: PCP Family Medicine; Referring Provider Physician Assistant; Visit Provider Physician Assistant
DX: C91.10 Chronic lymphocytic leukemia of B-cell type not having achieved remission (principal); R91.8 Other nonspecific abnormal finding of lung field; J98.4 Other disorders of lung; K83.8 Other specified diseases of biliary tract; K44.9 Diaphragmatic hernia without obstruction or gangrene; D17.9 Benign lipomatous neoplasm, unspecified; Z90.49 Acquired absence of other specified parts of digestive tract; Z96.89 Presence of other specified functional implants; Z97.5 Presence of (intrauterine) contraceptive device
CPT/HCPCS: 70491; 71260; 74177; Q9967